=== PATIENT | female | born 1945 | race Caucasian/White ===

== ENCOUNTER 2022-05-22 06:35 | Emergency (ER) | payer OTHER ==
[~2022-05-22] VITALS: Ht 170.2 cm; Wt 74.8 kg
--- NOTE | 2022-05-22 06:50 | NUR ---
[id number] FROM HOME C/O GLF WHILE WALKING TO RESTROOM, USES WALKER +KO, BUMP TO BACK OF HEAD, LEFT LEG PAIN, -BLOOD THINNERS. AXO3 VERBAL.
--- NOTE | 2022-05-22 07:09 | NUR ---
TAKEN TO CT VIA [facility].
[2022-05-22] MEDS ORDERED: ACETAMINOPHEN ES 500 MG TABLET ONE (07:29)
[2022-05-22] MEDS ORDERED: ACETAMINOPHEN ES 500 MG TABLET PO ONE (07:30)
--- NOTE | 2022-05-22 07:36 | NUR ---
Patient is back from CT. Patient is alert and conscious, and complained pain over left knee. She is not able to bend her knee due to pain, noted abrasion over anterior knee, neurovascular is intact over distal left leg, sensation is normal as well. Gave some water to patient, no choking noted. Patient denied any recent intake in tylenol and said that she was not allergic to tylenol. 1000mg tylenol was adminsitered.
--- NOTE | 2022-05-22 08:32 | NUR ---
Patient discharged to home in stable condition. Written and verbal after care instructions given. Patient verbalizes understanding of instruction.
[2022-05-22 08:34] VITALS: BP 134/82
== END 2022-05-22 08:35 | disposition home or self-care (01) ==
LOC: ER 06:42
DX: S09.8XXA Other specified injuries of head, initial encounter (principal); I10 Essential (primary) hypertension; W01.0XXA Fall on same level from slipping, tripping and stumbling without subsequent striking against object, initial encounter; Y93.89 Activity, other specified; Y92.89 Other specified places as the place of occurrence of the external cause; Y99.8 Other external cause status
CPT/HCPCS: 70450-TC; 73564-TC